=== PATIENT | female | born 1990 | race Hispanic/Latino ===

== ENCOUNTER 2022-09-11 22:46 | Emergency (ER) | payer BC ==
[~2022-09-11] VITALS: Ht 144.8 cm; Wt 63.5 kg
[2022-09-11] MEDS ORDERED: SODIUM CHLORIDE 0.9% 1000ML 1,000 ML IV ONE (23:45)
[2022-09-12] MEDS ORDERED: KETOROLAC TROMETHAMINE 30 MG/ML VIAL IV STA (00:48)
[2022-09-12] MEDS ORDERED: KETOROLAC TROMETHAMINE 30 MG/ML VIAL ONE (01:11)
[2022-09-12] MEDS ORDERED: SODIUM CHLORIDE 0.9% 1000ML 1,000 ML ONE (01:11)
[2022-09-12] MEDS ORDERED: FIORICET 50-301 EACH PO (01:21)
[2022-09-12] MEDS ORDERED: KEFLEX125 MG/5 M PO (01:24)
[2022-09-12 02:14] VITALS: BP 126/78
== END 2022-09-12 02:14 | disposition home or self-care (01) ==
LOC: FSED 23:17
DX: G44.209 Tension-type headache, unspecified, not intractable (principal); N39.0 Urinary tract infection, site not specified
CPT/HCPCS: 70450; 80053; 80307; 81003; 81025; 85025; 99284; J1885; J7030